=== PATIENT | female | born 1980 | race Caucasian/White ===

== ENCOUNTER 2017-05-28 15:28 | Emergency (ER) | payer OTHER ==
[2017-05-28] MEDS: ACETAMINOPHEN 325 MG TAB PO (19:54)
== END 2017-05-28 21:56 | disposition home or self-care (01) ==
LOC: E/R 15:28 → FTE 21:56
DX: J20.9 Acute bronchitis, unspecified (principal)
CPT/HCPCS: 71045; 87400; 87880; 99284-25

== ENCOUNTER 2017-09-21 18:15 | Emergency (ER) | payer OTHER | END 2017-09-21 19:25 | disposition home or self-care (01) | LOC: FTE 18:15 | DX: S69.92XA Unspecified injury of left wrist, hand and finger(s), initial encounter (principal); W22.8XXA Striking against or struck by other objects, initial encounter | CPT/HCPCS: 29130; 73140; 99283-25 ==

== ENCOUNTER 2018-02-06 12:43 | Emergency (ER) | payer OTHER ==
[2018-02-06 14:24] LABS: AADO2 Arterial 2.2 mmHg (7.0-24.0); Allen Test ACCEPTAB; Arterial Base Excess -1.3 mmol/L (-3.0-3); Arterial Blood Gas Oxygen Sat 98.5 mmHG (95.0-98.0); Arterial COHb 0.6 % (0.0-3.0); Arterial Fraction of Oxyhgb 97.9 % (93.0-99.0); Arterial HCO3 21.1 mmol/L (22.0-26.0); Arterial MetHb 0 % (0.0-1.5); Arterial Total Hemglobin 13.7 g/dl (12.0-18.0); Arterial pCO2 29.3 mmhg (35-45); MODE ROOM AIR; Site Left Radial
== END 2018-02-06 14:55 | disposition home or self-care (01) ==
LOC: E/R 12:43
DX: T58.8X1A Toxic effect of carbon monoxide from other source, accidental (unintentional), initial encounter (principal)
CPT/HCPCS: 36600; 82803; 99283

== ENCOUNTER 2018-08-12 13:13 | Emergency (ER) | payer OTHER ==
[2018-08-12 18:57] LABS: ADD UMIC YES; UR ASCORBIC ACID NEGATIVE (NEGATIVE); UR BACTERIA FEW /HPF (NONE SEEN); UR BILIRUBIN (Dip) NEGATIVE (NEGATIVE); UR BLOOD (Dip) NEGATIVE (NEGATIVE); UR CLARITY CLEAR (CLEAR); UR COLOR STRAW (YELLOW); UR GLUCOSE (Dip) NEGATIVE (NEGATIVE); UR KETONES (Dip) NEGATIVE (NEGATIVE); UR LEUKOCYTE ESTERASE (Dip) TRACE Leu/ul (NEGATIVE); UR NITRITE (Dip) NEGATIVE (NEGATIVE); UR RBC 1 /HPF (0-5); UR SPECIFIC GRAVITY (Dip) 1.014 (1.003-1.030); UR SQUAMOUS EPITHELIAL CELL FEW /HPF (FEW); UR TOTAL PROTEIN (Dip) NEGATIVE (NEGATIVE); UR UROBILINOGEN (Dip) NEGATIVE (NEGATIVE); UR WBC 2 /HPF (0-5)
[2018-08-12 19:05] LABS: ADD MAN DIFF? NO
[2018-08-12 19:17] LABS: BASOPHILS % 0.3 % (0.0-2.0); EOSINOPHILS # 0.2 10^3/ul (0.0-0.5); EOSINOPHILS % 1.8 % (0.0-7.0); HEMATOCRIT 43.2 % (37.0-47.0); HEMOGLOBIN 14.2 g/dl (12.0-16.0); LYMPHOCYTES # 4.6 10^3/ul (0.8-2.9); LYMPHOCYTES % 49.2 % (15.0-51.0); MEAN CORPUSCULAR HEMOGLOBIN 27.6 pg (29.0-33.0); MEAN CORPUSCULAR HGB CONC 32.9 g/dl (32.0-37.0); MONOCYTE # 0.6 10^3/ul (0.3-0.9); MONOCYTES % 5.9 % (0.0-11.0); NEUTROPHIL # 3.9 10^3/ul (1.6-7.5); NEUTROPHILS % 42.5 % (39.0-77.0); PLATELET COUNT 248 10^3/UL (140-415); RED BLOOD COUNT 5.14 10^6/ul (4.20-5.40); RED CELL DISTRIBUTION WIDTH 13.7 % (11.5-14.5)
[2018-08-12 19:17] LABS: WHITE BLOOD COUNT 9.3 10^3/ul (4.8-10.8)
[2018-08-12 19:35] LABS: ANION GAP 12 (5-13); BLOOD UREA NITROGEN 21 mg/dl (7-20); CALCIUM 9.7 mg/dl (8.4-10.2); CARBON DIOXIDE 23 mmol/L (21-31); CHLORIDE 105 mmol/L (97-110); CREATININE 0.77 mg/dl (0.44-1.00); Estimated GFR > 60 mL/min (>60); GLUCOSE 93 mg/dl (70-220); LIPASE 139 U/L (23-300); POTASSIUM 3.9 mmol/L (3.5-5.1); SODIUM 140 mmol/L (135-144)
[2018-08-12] MEDS: KETOROLAC 15 MG INJ IM (19:50)
== END 2018-08-12 20:21 | disposition home or self-care (01) ==
LOC: FTE 20:21
DX: R10.2 Pelvic and perineal pain (principal)
CPT/HCPCS: 80048; 81001; 81025; 83690; 85025; 96372; 99284-25

== ENCOUNTER 2018-10-27 16:40 | Emergency (ER) | payer OTHER | END 2018-10-27 19:09 | disposition home or self-care (01) | LOC: FTE 16:40 | DX: J40 Bronchitis, not specified as acute or chronic (principal) | CPT/HCPCS: 99283; Z7502 ==

== ENCOUNTER 2018-11-11 12:27 | Emergency (ER) | payer OTHER ==
[2018-11-11] MEDS: IBUPROFEN 600 MG TAB PO (13:05)
[2018-11-11 13:24] LABS: URINE BLOOD (Dip) POC Negative (NEGATIVE); URINE GLUCOSE (Dip) POC Negative (NEGATIVE); URINE KETONES (Dip) POC Negative (NEGATIVE); URINE LEUKOCYTE EST (Dip) POC 1+ (NEGATIVE); URINE NITRITE (Dip) POC Negative (NEGATIVE); URINE TOTAL PROTEIN POC Negative (NEGATIVE)
== END 2018-11-11 15:18 | disposition home or self-care (01) ==
LOC: FTE 12:27
DX: N83.201 Unspecified ovarian cyst, right side (principal); N39.0 Urinary tract infection, site not specified
CPT/HCPCS: 76856; 81003; 81025; 99284-25